=== PATIENT | female | born 1960 | race African-American/Black ===

== ENCOUNTER 2017-11-22 04:39 | Emergency (ER) | payer OTHER, MEDICAID ==
[~2017-11-22] VITALS: Ht 167.6 cm; Wt 72.6 kg
[2017-11-22] MEDS ORDERED: TRAMADOL 50 MG50 MG (04:47)
[2017-11-22] MEDS ORDERED: FLEXERIL (04:48)
[2017-11-22] MEDS ORDERED: [UNRECOGNIZED DRUG - REMARK] (04:48)
[2017-11-22] MEDS ORDERED: PERCOCET PO (05:16)
[2017-11-22] MEDS ORDERED: PREDNISONE 20 M20 M1 PO (05:16)
[2017-11-22] MEDS ORDERED: MOBIC15 MG PO (05:16)
[2017-11-22 05:51] VITALS: BP 143/86
== END 2017-11-22 05:54 | disposition home or self-care (01) ==
LOC: M.ERS 04:39
DX: M79.1 Myalgia (principal); Z88.5 Allergy status to narcotic agent; Z88.6 Allergy status to analgesic agent; Z88.1 Allergy status to other antibiotic agents